=== PATIENT | male | born 1990 | race Caucasian/White ===

== ENCOUNTER 2021-11-02 15:52 | Emergency (ER) | payer OTHER ==
[2021-11-02] MEDS ORDERED: Sodium Chloride 0.9% 10 ML Syringe FLUSH PRN (15:56)
[2021-11-02] MEDS ORDERED: Labetalol 100 MG/20 ML MDV IVPUSH ONE ×3 (16:45→19:39)
[2021-11-02] MEDS ORDERED: Cephalexin 500 MG Cap PO ONE (19:57)
== END 2021-11-02 20:25 | disposition home or self-care (01) ==
LOC: JD.ED 15:52
DX: R07.89 Other chest pain (principal); I10 Essential (primary) hypertension
CPT/HCPCS: 36415; 80053; 84484; 85025; 93005; 96374; 96376; 99285; J3490; 93010; 99283